=== PATIENT | female | born 1960 | race Hispanic/Latino ===

== ENCOUNTER 2017-08-26 11:09 | Observation (INO) | payer BC ==
[2017-08-26] MEDS ORDERED: ADENOSINE 3 MG/ML 2ML VIAL IV ONE (11:16)
[2017-08-26] MEDS ORDERED: SODIUM CHLORIDE 0.9% 1000ML 1,000 ML IV ONE (11:19)
[2017-08-26 11:31] LABS: BASOPHILS % (AUTO) 0.2 % (0.0-5.0); EOSINOPHILS % (AUTO) 3.1 % (0.0-8.0); HEMATOCRIT 45.8 % (36-48); LYMPHOCYTES % (AUTO) 29.1 % (21.0-51.0); MEAN CORPUSCULAR HEMOGLOBIN 28.4 pg (27.0-33.0); MEAN CORPUSCULAR HGB CONC 34.3 g/dL (32.0-36.0); MEAN CORPUSCULAR VOLUME 82.9 fL (79-99); MONOCYTES % (AUTO) 6.7 % (3.0-13.0); NEUTROPHILS % (AUTO) 60.9 % (40.0-77.0); PLATELET COUNT (AUTO) 329 K/uL (130-400); RED BLOOD CELL COUNT(AUTO) 5.52 MIL/uL (4.00-5.50); RED CELL DISTRIBUTION WIDTH 14.4 % (11.0-15.5); WHITE BLOOD COUNT (AUTO) 7.4 K/uL (4.8-10.8)
[2017-08-26 11:39] LABS: POTASSIUM 3.6 mmol/L (3.5-5.1)
[2017-08-26 11:42] LABS: MAGNESIUM 1.9 mg/dL (1.80-2.40); PHOSPHORUS 2.2 mg/dL (2.5-4.9)
[2017-08-26 11:44] LABS: ALBUMIN 4.4 g/dL (3.5-5.0); BILIRUBIN,TOTAL 0.3 mg/dL (0.2-1.0); TOTAL PROTEIN, SERUM 8.3 g/dL (6.0-8.3)
[2017-08-26] MEDS ORDERED: HYDRALAZINE HCL 20 MG/ML VIAL IV PRN (14:15)
[2017-08-26] MEDS ORDERED: LACTULOSE 20 GM/30 ML UDCUP PO PRN (14:15)
[2017-08-26] MEDS ORDERED: ONDANSETRON HCL 4 MG/2 ML VIAL IV PRN (14:15)
[2017-08-26] MEDS ORDERED: NITROGLYCERIN 0.4 MG SL TAB SL PRN (14:15)
[2017-08-26] MEDS ORDERED: MAG HYDROX/AL HYDROX/SIMETH ES 30 ML SUSP UDCUP PO PRN (14:15)
[2017-08-26] MEDS ORDERED: GUAIFENESIN-DM 200/20 MG 10 ML PO PRN (14:15)
[2017-08-26] MEDS ORDERED: ACETAMINOPHEN 325 MG TAB PO PRN (14:15)
[2017-08-26] MEDS ORDERED: METOPROLOL TARTRATE 25 MG TAB ONE (16:08)
[2017-08-26 17:52] VITALS: BP 124/76
[2017-08-26] MEDS: ACETAMINOPHEN 325 MG TAB PO PRN (18:03)
[2017-08-26 19:33] VITALS: BP 131/78
[2017-08-26 19:54] LABS: CREATINE KINASE MB 4.2 ng/mL (0.5-3.6)
[2017-08-26 19:57] LABS: TROPONIN I 0.87 ng/mL (0.00-0.06)
[2017-08-26] MEDS: METOPROLOL TARTRATE 25 MG TAB PO SCH (20:17)
[2017-08-26] MEDS: FAMOTIDINE 20MG TAB 20 MG TAB PO SCH (20:24)
[2017-08-26 23:22] VITALS: BP 120/86
[2017-08-27 04:00] VITALS: BP 145/81
[2017-08-27 04:18] LABS: CREATINE KINASE MB 4.6 ng/mL (0.5-3.6); TROPONIN I 0.45 ng/mL (0.00-0.06)
[2017-08-27] MEDS: FAMOTIDINE 20MG TAB 20 MG TAB PO SCH (08:01)
[2017-08-27] MEDS: METOPROLOL TARTRATE 25 MG TAB PO SCH (08:01)
[2017-08-27 08:21] VITALS: BP 102/67
[2017-08-27] MEDS ORDERED: ASPIRIN 325 MG TABLET PO SCH (09:00)
[2017-08-27] MEDS ORDERED: ENOXAPARIN SODIUM 40 MG/0.4 ML SYRINGE SQ SCH (09:00)
[2017-08-27 12:14] VITALS: BP 126/61
[2017-08-27] MEDS ORDERED: REGADENOSON 0.4 MG/5 ML PF SYG IVP SCH (12:30)
[2017-08-27 16:00] VITALS: BP 123/75
[2017-08-27] MEDS: ACETAMINOPHEN 325 MG TAB PO PRN (17:02)
== END 2017-08-27 18:28 | disposition home or self-care (01) ==
LOC: EDH 11:09 → EDHIP 14:03 → 2DH 17:22
PROVIDERS: ADMIT Internal Medicine; ATTEND Internal Medicine
DX: I47.1 Supraventricular tachycardia (principal); Z82.49 Family history of ischemic heart disease and other diseases of the circulatory system; E78.5 Hyperlipidemia, unspecified; R79.89 Other specified abnormal findings of blood chemistry
CPT/HCPCS: 36415 ×2; 71045; 78452; 80053; 82550 ×2; 82553 ×2; 83735 ×2; 83874 ×2; 84100; 84443; 84484 ×2; 85025; 93005 ×3; 93017; 93306; 96372; 99285; A9500 ×2; G0378 ×28; J0153; J1650; J2785; J7030; 96374

== ENCOUNTER → 2023-05-05 | Outpatient (CLI) | payer OTHER | END | disposition home or self-care (01) | LOC: OIH 10:38 | PROVIDERS: ATTEND Internal Medicine Cardiovascular Disease | DX: Z13.6 Encounter for screening for cardiovascular disorders (principal) | CPT/HCPCS: 75571 ==